=== PATIENT | male | born 1975 | race Caucasian/White ===

== ENCOUNTER 2020-09-09 23:27 | Emergency (ER) | payer OTHER ==
[~2020-09-09 23:27] MED LIST: BENTYL 20MG TAB20 MG PO
[2020-09-10] MEDS ORDERED: MUCINEX DM ER1 EACH PO (01:08)
[2020-09-10] MEDS ORDERED: OMEPRAZOLE20 M1 PO (01:08)
== END 2020-09-10 01:23 | disposition home or self-care (01) ==
LOC: ER1 23:27
DX: J20.9 Acute bronchitis, unspecified (principal); K21.9 Gastro-esophageal reflux disease without esophagitis; R19.7 Diarrhea, unspecified; Z86.16 Personal history of COVID-19
CPT/HCPCS: 71045; 93005; 99284